=== PATIENT | male | born 1960 | race Caucasian/White ===

== ENCOUNTER 2023-09-16 05:55 | Day surgery (SDC) | payer BC ==
[2023-09-16 06:17] VITALS: RESP 16
[2023-09-16] MEDS: Lactated Ringers 1,000 ML IV SCH (06:34)
[2023-09-16] MEDS ORDERED: DIPRIVAN 200 MG/20 ML IV ONE ×2 (07:58→08:10)
[2023-09-16 09:05] VITALS: O2SAT 97
[2023-09-16 09:21] VITALS: BP 139/81; PULSE 63; TEMP 97.5
--- NOTE | 2023-09-16 09:43 | OP ---
SURGERY DATE/TIME: 09/16/2023 0806 PREOPERATIVE DIAGNOSIS: Screening colonoscopy. POSTOPERATIVE DIAGNOSIS: Diverticulosis. PROCEDURE: Colonoscopy. SURGEON: Alex Brown M.D. ANESTHESIA: MAC by Dimas Ng CRNA. ESTIMATED BLOOD LOSS: None. SPECIMENS: None. DESCRIPTION OF PROCEDURE: After informed written consent was obtained, the patient was taken to the endoscopy suite. He was placed in left lateral decubitus position and anesthesia was titrated to desired level of consciousness. Digital rectal exam showed normal sphincter tone and no internal lesions. The scope was inserted into the rectum and sequentially the entire colonic mucosa was traversed. The level of cecum was reached and verified with direct visualization of the ileocecal valve. Upon withdrawal careful mucosal inspection revealed scattered diverticula. Prep was noted to be poor in some areas and fair in others but there were no obvious mucosal abnormalities or large polyps. Prior to withdrawal retroflexion showed no internal lesions. The scope was removed. The patient was transferred to the recovery room in excellent condition.
== END 2023-09-16 09:26 | disposition home or self-care (01) ==
LOC: SDC 05:55
PROVIDERS: ATTEND Family Medicine
DX: Z12.11 Encounter for screening for malignant neoplasm of colon (principal); K57.30 Diverticulosis of large intestine without perforation or abscess without bleeding
CPT/HCPCS: 93005; J2704